=== PATIENT | female | born 1955 | race Hispanic/Latino ===

== ENCOUNTER → 2018-09-01 | Outpatient (CLI) | payer OTHER | END | disposition home or self-care (01) | LOC: RAH 07:58 | PROVIDERS: ATTEND Family Medicine | DX: Z12.31 Encounter for screening mammogram for malignant neoplasm of breast (principal) | CPT/HCPCS: 77067 ==

== ENCOUNTER → 2019-02-09 | Outpatient (CLI) | payer OTHER | END | disposition home or self-care (01) | LOC: RAH 08:38 | PROVIDERS: ATTEND Internal Medicine Gastroenterology | DX: K74.60 Unspecified cirrhosis of liver (principal); K80.20 Calculus of gallbladder without cholecystitis without obstruction | CPT/HCPCS: 76700; 93975 ==

== ENCOUNTER 2019-04-13 06:04 | Day surgery (SDC) | payer OTHER ==
[2019-04-13] VITALS (7 sets, daily range): BP systolic 90–157; BP diastolic 36–58
[~2019-04-13] VITALS: Ht 147.3 cm; Wt 54.0 kg
[~2019-04-13 06:04] MED LIST: FERR-63 PO; GLIP5TAB11 PO; LOSA25TA41 PO; METF-446 PO; MULT400C3 PO; OMEG-148 PO; OMEP40CA37 PO; PROP10TA10 PO; SIMV10TA6 PO; SITA100T12 PO; SODIUM CHLORIDE 0.9% 1000ML 1,000 ML IV ONE
[2019-04-13] MEDS ORDERED: PROPOFOL 10 MG/ML 20ML VIAL IV ONE (08:22)
[2019-04-13] MEDS ORDERED: LIDOCAINE HCL 2% 20ML ONE (08:23)
[2019-04-15 05:10] LABS: HEPATITIS A ANTIBODY IGM Negative (Negative)
== END 2019-04-13 09:10 | disposition home or self-care (01) ==
LOC: ENDO 06:04 → DAH 06:04 → ENDO 09:10
PROVIDERS: ATTEND Internal Medicine Gastroenterology
DX: Z12.11 Encounter for screening for malignant neoplasm of colon (principal); D12.0 Benign neoplasm of cecum; K63.5 Polyp of colon; K57.30 Diverticulosis of large intestine without perforation or abscess without bleeding; K64.0 First degree hemorrhoids; E78.5 Hyperlipidemia, unspecified; I10 Essential (primary) hypertension; E11.9 Type 2 diabetes mellitus without complications; Z79.4 Long term (current) use of insulin; Z79.84 Long term (current) use of oral hypoglycemic drugs; Z90.710 Acquired absence of both cervix and uterus; Z79.899 Other long term (current) drug therapy; Z98.890 Other specified postprocedural states
CPT/HCPCS: 36415; 45385; 82948 ×2; 86255; 86709; 87522; 88305; 93005; A4606; J2704; J3490; J7030

== ENCOUNTER → 2019-10-14 | Outpatient (CLI) | payer OTHER ==
[~2019-10-14] MED LIST changes: +OMEP40CA13 PO; -OMEP40CA37 PO; -SIMV10TA6 PO; +SIMV10TA97 PO; -SODIUM CHLORIDE 0.9% 1000ML 1,000 ML IV ONE
== END | disposition home or self-care (01) ==
LOC: RAH 08:17
PROVIDERS: ATTEND Internal Medicine Gastroenterology
DX: K80.20 Calculus of gallbladder without cholecystitis without obstruction (principal); K74.60 Unspecified cirrhosis of liver
CPT/HCPCS: 76700; 93975

== ENCOUNTER 2020-02-10 12:17 | Observation (INO) | payer OTHER ==
[2020-02-10 14:30] LABS: BASOPHILS % (AUTO) 0.5 % (0.0-5.0); EOSINOPHILS % (AUTO) 4.4 % (0.0-8.0); HEMATOCRIT 22.3 % (36-48); LYMPHOCYTES % (AUTO) 17.7 % (21.0-51.0); MEAN CORPUSCULAR HGB CONC 32.3 g/dL (32.0-36.0); MEAN CORPUSCULAR VOLUME 102.3 fL (79-99); MONOCYTES % (AUTO) 7.4 % (3.0-13.0); NEUTROPHILS % (AUTO) 69.4 % (40.0-77.0); PLATELET COUNT (AUTO) 140 K/uL (130-400); RED BLOOD CELL COUNT(AUTO) 2.18 MIL/uL (4.00-5.50); WHITE BLOOD COUNT (AUTO) 13.3 K/uL (4.8-10.8)
[2020-02-10 14:41] LABS: CREATININE 1.2 mg/dL (0.5-1.5); POTASSIUM 4.4 mmol/L (3.5-5.1)
[2020-02-10 14:42] LABS: INR 0.95 (0.85-1.15); PARTIAL THROMBOPLASTIN TIME 25.7 SEC (26.3-35.5); PROTHROMBIN TIME 10.3 SEC (9.6-11.6)
[2020-02-10 14:46] LABS: ALBUMIN 2.8 g/dL (3.5-5.0); BILIRUBIN,TOTAL 0.2 mg/dL (0.2-1.0); TOTAL PROTEIN, SERUM 6.1 g/dL (6.0-8.3)
[2020-02-10] MEDS ORDERED: OCTREOTIDE ACETATE 100 MCG/ML AMP ONE ×2 (15:11→15:16)
[2020-02-10] MEDS ORDERED: OCTREOTIDE ACETATE 500 MCG in SODIUM CHLORIDE 0.9% 97.5 ML IV SCH (15:45)
[2020-02-10] MEDS ORDERED: ONDANSETRON HCL 4 MG/2 ML VIAL IVP PRN (15:45)
[2020-02-10] MEDS ORDERED: HYDRALAZINE HCL 20 MG/ML VIAL IV PRN (15:45)
[2020-02-10] MEDS: LACTATED RINGERS 1000ML 1,000 ML IV SCH (15:45)
[2020-02-10] MEDS ORDERED: CEFTRIAXONE SODIUM 1 GM ONE (16:02)
--- NOTE | 2020-02-10 18:10 | NUR ---
ADMISSION PER ER. PT AAO X 3 REVIEW . NOTED NO GI BLEEDING ASSIT UP TO THE BATHROOM AND HAS ONE TARRY BM. ASSIT BACK TO BED . REVIEW PT DATA ADMISSION .
[2020-02-10 20:00] VITALS: BP_SYST 118; BP_SYST 134; BP_DIAS 53; BP_DIAS 72
[2020-02-10] MEDS: PANTOPRAZOLE SODIUM 80 MG in NS 100ML IVP SCH (22:02)
[2020-02-10 23:49] VITALS: BP 104/44
[2020-02-11] VITALS (7 sets, daily range): BP systolic 116–138; BP diastolic 44–80
[2020-02-11] MEDS ORDERED: SODIUM CHLORIDE 0.9% 500ML 500 ML IV ONE (00:10)
[2020-02-11 00:46] LABS: HEMATOCRIT 22.7 % (36-48); MEAN CORPUSCULAR HGB CONC 31.7 g/dL (32.0-36.0); MEAN CORPUSCULAR VOLUME 104.1 fL (79-99); RED BLOOD CELL COUNT(AUTO) 2.18 MIL/uL (4.00-5.50); RED CELL DISTRIBUTION WIDTH 15.4 % (11.0-15.5); WHITE BLOOD COUNT (AUTO) 15.9 K/uL (4.8-10.8)
[2020-02-11] MEDS: LACTATED RINGERS 1000ML 1,000 ML IV SCH (06:42)
[2020-02-11] MEDS: PANTOPRAZOLE SODIUM 80 MG in NS 100ML IVP SCH (07:03)
--- NOTE | 2020-02-11 08:00 | NUR ---
PT AAO X 3 REVIEW HER CARE, AND MEDICATIONS AND SIDE EFFECT IN [place]. DENIES ANY GASTRIC PAIN. NPO STATUS HOB UP AND CALL LIGHT I N REACH..
[2020-02-11 08:24] LABS: BASOPHILS % (AUTO) 0.5 % (0.0-5.0); EOSINOPHILS % (AUTO) 1.7 % (0.0-8.0); HEMATOCRIT 32.2 % (36-48); MEAN CORPUSCULAR HEMOGLOBIN 31.8 pg (27.0-33.0); MEAN CORPUSCULAR HGB CONC 33.2 g/dL (32.0-36.0); MEAN CORPUSCULAR VOLUME 95.8 fL (79-99); MONOCYTES % (AUTO) 10.6 % (3.0-13.0); NEUTROPHILS % (AUTO) 71.7 % (40.0-77.0); PLATELET COUNT (AUTO) 112 K/uL (130-400); RED BLOOD CELL COUNT(AUTO) 3.36 MIL/uL (4.00-5.50); RED CELL DISTRIBUTION WIDTH 16.8 % (11.0-15.5)
--- NOTE | 2020-02-11 10:38 | NUR ---
CHART CHECK COMPLETED. Pt IS A 64 Y.O. FEMALE ADMITTED SECONDARY TO GI BLEED. PAST MEDICAL HISTORY IS NOT REPORTED AT THIS TIME. Pt CURRENTLY NPO SECONDARY TO ADMITTING DIAGNOSIS. SKILLED SPEECH THERAPY IS NOT RECOMMENDED AT THIS TIME. Addendum: 02/11/20 at 1044 by BRENT IZQUIERDO, [facility] Amended: Links added.
--- NOTE | 2020-02-11 12:00 | NUR ---
STARTED ON A CL LIQ DIET. FIRST . SETUP . REVIEW IF SHE HAS ANY BLEEDING TO CALL NURSE, CALL LIGHT IN REACH..
--- NOTE | 2020-02-11 12:33 | NUR ---
DCP CM spoke to pt discussed dc plans. Pt is independent prior to admission, lives at home with son, daughter in law, and 4 grandchildren. Denies any equipments/services. Feels safe to go back home, still drives and works as a provider, son and family able to assist with transportation and needs as necessary. DC plan to home once stable. CM to cont to follow up. Verified home addr: [id number] [place] [address] Addendum: 02/11/20 at 1235 by RAH WEINSTEIN LVN CM Amended: Links added.
[2020-02-11 14:08] LABS: BASOPHILS % (AUTO) 0.7 % (0.0-5.0); EOSINOPHILS % (AUTO) 4.3 % (0.0-8.0); HEMATOCRIT 33.4 % (36-48); LYMPHOCYTES % (AUTO) 17.5 % (21.0-51.0); MEAN CORPUSCULAR HEMOGLOBIN 31.5 pg (27.0-33.0); MEAN CORPUSCULAR HGB CONC 32.6 g/dL (32.0-36.0); MEAN CORPUSCULAR VOLUME 96.5 fL (79-99); MONOCYTES % (AUTO) 12.4 % (3.0-13.0); NEUTROPHILS % (AUTO) 64.5 % (40.0-77.0); PLATELET COUNT (AUTO) 105 K/uL (130-400); RED BLOOD CELL COUNT(AUTO) 3.46 MIL/uL (4.00-5.50); RED CELL DISTRIBUTION WIDTH 17.8 % (11.0-15.5); WHITE BLOOD COUNT (AUTO) 9.4 K/uL (4.8-10.8)
--- NOTE | 2020-02-11 17:30 | NUR ---
PT SITTING UP IN BED , REVIEW CHANGE DIET TO A SOFT BLAND , GI DIET. PT STATED THAT SHE TOOK HER CL LIQ WITH ANY PAIN, CALL LIGHT IN REACH.
--- NOTE | 2020-02-11 19:20 | NUR ---
HGB OF A 10.3 DOWN FROM A 10.9 AT 1402, CONT . MONITOR .
[2020-02-11 19:54] LABS: BASOPHILS % (AUTO) 0.7 % (0.0-5.0); EOSINOPHILS % (AUTO) 6.4 % (0.0-8.0); HEMATOCRIT 31.7 % (36-48); LYMPHOCYTES % (AUTO) 18.3 % (21.0-51.0); MEAN CORPUSCULAR HEMOGLOBIN 31.4 pg (27.0-33.0); MEAN CORPUSCULAR HGB CONC 32.5 g/dL (32.0-36.0); MEAN CORPUSCULAR VOLUME 96.6 fL (79-99); MONOCYTES % (AUTO) 12.3 % (3.0-13.0); NEUTROPHILS % (AUTO) 61.9 % (40.0-77.0); PLATELET COUNT (AUTO) 111 K/uL (130-400); RED BLOOD CELL COUNT(AUTO) 3.28 MIL/uL (4.00-5.50); WHITE BLOOD COUNT (AUTO) 8.9 K/uL (4.8-10.8)
[2020-02-11] MEDS: PANTOPRAZOLE SODIUM 40 MG TABLET.DR PO SCH (21:28)
[2020-02-12 04:11] VITALS: BP 130/58
[2020-02-12 08:00] VITALS: BP 138/55
[2020-02-12] MEDS ORDERED: OMEP40CA13 PO (09:47)
[2020-02-12] MEDS: PANTOPRAZOLE SODIUM 40 MG TABLET.DR PO SCH (09:54)
[2020-02-12 11:00] VITALS: BP 94/52
== END 2020-02-12 13:00 | disposition home or self-care (01) ==
LOC: EDH 12:17 → EDHIP 15:00 → 3DH 17:56 → 3BH 20:40
PROVIDERS: ADMIT Internal Medicine; ATTEND Internal Medicine
DX: I85.10 Secondary esophageal varices without bleeding (principal); D62 Acute posthemorrhagic anemia; K29.70 Gastritis, unspecified, without bleeding; K92.0 Hematemesis; E11.9 Type 2 diabetes mellitus without complications; E78.5 Hyperlipidemia, unspecified; I10 Essential (primary) hypertension; K57.90 Diverticulosis of intestine, part unspecified, without perforation or abscess without bleeding; K80.20 Calculus of gallbladder without cholecystitis without obstruction; K64.9 Unspecified hemorrhoids; K74.60 Unspecified cirrhosis of liver; Z90.710 Acquired absence of both cervix and uterus; Z79.84 Long term (current) use of oral hypoglycemic drugs; Z79.899 Other long term (current) drug therapy
CPT/HCPCS: 36415 ×2; 36430; 80053; 82550; 82948 ×2; 84484; 85025 ×4; 85027; 85610; 85730; 86850; 86900; 86901; 86922; 93005; 96361 ×2; 96365; 96366 ×2; 99291; C9113 ×2; G0378 ×27; J0696; J2354 ×3; J7040; J7120; P9016 ×2

== ENCOUNTER → 2020-02-26 | Outpatient (CLI) | payer OTHER | END | disposition home or self-care (01) | LOC: RAH 07:47 | PROVIDERS: ATTEND Internal Medicine Gastroenterology | DX: Z01.810 Encounter for preprocedural cardiovascular examination (principal); I05.9 Rheumatic mitral valve disease, unspecified; I85.00 Esophageal varices without bleeding; K80.20 Calculus of gallbladder without cholecystitis without obstruction | CPT/HCPCS: 76700; 93306; 93356; 93975 ==

== ENCOUNTER 2020-09-09 18:36 | Inpatient (IN) | payer OTHER ==
[~2020-09-09] VITALS: Ht 142.2 cm; Wt 55.8 kg
[2020-09-09] MEDS: SODIUM CHLORIDE 0.9% 1000ML 1,000 ML IV SCH (11:01)
[2020-09-09 19:34] LABS: BASOPHILS % (AUTO) 0.9 % (0.0-5.0); EOSINOPHILS % (AUTO) 9.2 % (0.0-8.0); HEMATOCRIT 33.5 % (36-48); LYMPHOCYTES % (AUTO) 15.9 % (21.0-51.0); MEAN CORPUSCULAR HEMOGLOBIN 34.3 pg (27.0-33.0); MEAN CORPUSCULAR HGB CONC 32.8 g/dL (32.0-36.0); MEAN CORPUSCULAR VOLUME 104.4 fL (79-99); MONOCYTES % (AUTO) 6.6 % (3.0-13.0); NEUTROPHILS % (AUTO) 66.4 % (40.0-77.0); PLATELET COUNT (AUTO) 207 K/uL (130-400); RED BLOOD CELL COUNT(AUTO) 3.21 MIL/uL (4.00-5.50); RED CELL DISTRIBUTION WIDTH 13.2 % (11.0-15.5); WHITE BLOOD COUNT (AUTO) 13.4 K/uL (4.8-10.8)
[2020-09-09 19:35] LABS: APPEARANCE,URINE Clear (CLEAR); BILIRUBIN,URINE Negative (NEGATIVE); COLOR,URINE Yellow (YELLOW); GLUCOSE, URINE (UA) Negative (NEGATIVE); KETONES,URINE Trace mg/dL (NEGATIVE); LEUKOCYTE ESTERASE ,URINE Small (NEGATIVE); NITRATE,URINE Negative (NEGATIVE); OCCULT BLOOD,URINE Small (NEGATIVE); PROTEIN,URINE POS 1+ mg/dL (NEGATIVE)
[2020-09-09 19:49] LABS: CREATININE 1.4 mg/dL (0.5-1.5); POTASSIUM 5.7 mmol/L (3.5-5.1)
[2020-09-09 19:50] LABS: INR 1.02 (0.85-1.15); PROTHROMBIN TIME 11.1 SEC (9.6-11.6)
[2020-09-09 19:51] LABS: PARTIAL THROMBOPLASTIN TIME 26.1 SEC (26.3-35.5)
[2020-09-09 19:54] LABS: ALBUMIN 3.3 g/dL (3.5-5.0); BACTERIA,URINE Rare /HPF (None Seen); BILIRUBIN,TOTAL 0.5 mg/dL (0.2-1.0); RBC,URINE 26-50 /HPF (0-1); SQUAMOUS EPITHELIAL CELL,UR Few /HPF (0-2); TOTAL PROTEIN, SERUM 7.4 g/dL (6.0-8.3)
[2020-09-09] MEDS ORDERED: PANTOPRAZOLE 40 MG/VIAL ONE (20:08)
[2020-09-09] MEDS ORDERED: SODIUM CHLORIDE 0.9% 100 ML IV ONE (20:09)
[2020-09-09] MEDS ORDERED: SODIUM POLYSTYRENE SULFONATE 15 GM/60 ML ML ONE (20:28)
[2020-09-09] MEDS ORDERED: PANTOPRAZOLE SODIUM 80 MG in NS 100ML IVP SCH (20:30)
[2020-09-09] MEDS ORDERED: ZOLPIDEM TARTRATE 5 MG TAB PO PRN (21:45)
[2020-09-09] MEDS ORDERED: ACETAMINOPHEN 325 MG TAB PO PRN (21:45)
[2020-09-09] MEDS ORDERED: ONDANSETRON HCL 4 MG/2 ML VIAL IV PRN (21:45)
[2020-09-09] MEDS ORDERED: DiphenhydrAMINE HCL 50 MG/ML VIAL IV PRN (21:45)
[2020-09-09] MEDS ORDERED: HYDROMORPHONE HCL 0.5 MG/0.5 ML ML IVP PRN (21:45)
[2020-09-09] MEDS ORDERED: SODIUM CHLORIDE 0.9% 1000ML 1,000 ML IV ONE (22:09)
[2020-09-10] MEDS: PROPRANOLOL HCL 10 MG TAB PO SCH ×4 (02:00→20:56)
[2020-09-10] MEDS ORDERED: SODIUM CHLORIDE 0.9% 100 ML IV ONE ×2 (04:50→08:27)
[2020-09-10] MEDS ORDERED: PANTOPRAZOLE 40 MG/VIAL ONE ×2 (04:50→08:28)
[2020-09-10] MEDS ORDERED: FERROUS SULFATE 325 MG TABLET.DR ONE (08:21)
[2020-09-10] MEDS ORDERED: LOSARTAN 50 MG TABLET ONE (08:21)
[2020-09-10] MEDS ORDERED: PANTOPRAZOLE SODIUM 80 MG in SODIUM CHLORIDE 0.9% 100 ML IV SCH (09:00)
[2020-09-10] MEDS: FERROUS SULFATE 325 MG TABLET.DR PO SCH ×2 (09:00→20:56)
[2020-09-10] MEDS: LOSARTAN 50 MG TABLET PO SCH (09:00)
[2020-09-10 09:50] VITALS: BP 146/50
[2020-09-10] MEDS: SODIUM CHLORIDE 0.9% 1000ML 1,000 ML IV SCH (11:05)
[2020-09-10] MEDS ORDERED: OCTREOTIDE ACETATE 1,250 MCG in SODIUM CHLORIDE 0.9% 250 ML IV SCH (11:45)
[2020-09-10 11:47] VITALS: BP 113/49
[2020-09-10] MEDS ORDERED: SIMV-43 PO (12:12)
[2020-09-10 16:27] VITALS: BP 121/50
[2020-09-10 19:49] VITALS: BP 133/48
[2020-09-10] MEDS: PANTOPRAZOLE 40 MG/VIAL IVP SCH (20:56)
[2020-09-10] MEDS: SIMVASTATIN 20 MG TABLET PO SCH (20:56)
[2020-09-10 23:26] VITALS: BP 109/47
[2020-09-11] VITALS (18 sets, daily range): BP systolic 97–153; BP diastolic 37–79
[2020-09-11] MEDS: SODIUM CHLORIDE 0.9% 1000ML 1,000 ML IV SCH ×3 (00:57→21:26)
[2020-09-11] MEDS: PROPRANOLOL HCL 10 MG TAB PO SCH ×3 (05:55→21:22)
[2020-09-11 06:16] LABS: HEMATOCRIT 28.1 % (36-48); MEAN CORPUSCULAR HEMOGLOBIN 33.6 pg (27.0-33.0); MEAN CORPUSCULAR VOLUME 104.9 fL (79-99); RED BLOOD CELL COUNT(AUTO) 2.68 MIL/uL (4.00-5.50); RED CELL DISTRIBUTION WIDTH 13.7 % (11.0-15.5); WHITE BLOOD COUNT (AUTO) 9.6 K/uL (4.8-10.8)
[2020-09-11 06:41] LABS: CREATININE 1.2 mg/dL (0.5-1.5); POTASSIUM 4.6 mmol/L (3.5-5.1)
[2020-09-11] MEDS: LOSARTAN 50 MG TABLET PO SCH (09:00)
[2020-09-11] MEDS ORDERED: PROPOFOL 10 MG/ML 20ML VIAL IV ONE (10:15)
[2020-09-11] MEDS ORDERED: LIDOCAINE HCL 1% 20 ML VIAL ONE (10:15)
[2020-09-11] MEDS: FERROUS SULFATE 325 MG TABLET.DR PO SCH ×2 (11:24→21:22)
[2020-09-11] MEDS: PANTOPRAZOLE 40 MG/VIAL IVP SCH ×2 (13:56→21:00)
[2020-09-11] MEDS ORDERED: PEG 3350/NA SULF,BICARB,CL/KCL 4000 ML SOLN PO SCH (20:15)
[2020-09-11] MEDS: SIMVASTATIN 20 MG TABLET PO SCH (21:22)
[2020-09-12] VITALS (21 sets, daily range): BP systolic 108–148; BP diastolic 40–107
[2020-09-12] MEDS: PROPRANOLOL HCL 10 MG TAB PO SCH ×2 (05:11→16:40)
[2020-09-12 06:20] LABS: HEMATOCRIT 27.4 % (36-48); MEAN CORPUSCULAR HEMOGLOBIN 33.5 pg (27.0-33.0); MEAN CORPUSCULAR HGB CONC 31.8 g/dL (32.0-36.0); MEAN CORPUSCULAR VOLUME 105.4 fL (79-99); RED BLOOD CELL COUNT(AUTO) 2.6 MIL/uL (4.00-5.50); RED CELL DISTRIBUTION WIDTH 13.6 % (11.0-15.5); WHITE BLOOD COUNT (AUTO) 8.1 K/uL (4.8-10.8)
[2020-09-12 06:30] LABS: CREATININE 1.1 mg/dL (0.5-1.5); MAGNESIUM 1.6 mg/dL (1.80-2.40); POTASSIUM 4.1 mmol/L (3.5-5.1)
[2020-09-12 06:32] LABS: INR 1.05 (0.85-1.15); PROTHROMBIN TIME 11.4 SEC (9.6-11.6)
[2020-09-12 06:33] LABS: PARTIAL THROMBOPLASTIN TIME 23.8 SEC (26.3-35.5)
[2020-09-12] MEDS: PANTOPRAZOLE 40 MG/VIAL IVP SCH (09:00)
[2020-09-12] MEDS: FERROUS SULFATE 325 MG TABLET.DR PO SCH (09:00)
[2020-09-12] MEDS: LOSARTAN 50 MG TABLET PO SCH (09:00)
[2020-09-12] MEDS ORDERED: LIDOCAINE HCL-MPF 2% 5ML VIAL ONE (10:10)
[2020-09-12] MEDS ORDERED: PROPOFOL 10 MG/ML 20ML VIAL IV ONE (10:10)
[2020-09-12] MEDS ORDERED: PANT40TA PO (13:29)
[2020-09-12] MEDS ORDERED: DOCU-116 PO (13:29)
[2020-09-12] MEDS ORDERED: MAGNESIUM 2GM PREMIX 50ML 50 ML IV SCH (15:30)
[2020-09-12] MEDS: SODIUM CHLORIDE 0.9% 1000ML 1,000 ML IV SCH (16:25)
[2020-09-12] MEDS ORDERED: SODIUM CHLORIDE 0.9% 250 ML IV ONE (16:30)
== END 2020-09-12 21:00 | disposition home or self-care (01) | DRG 377 ==
LOC: EDH 18:36 → EDHIP 21:29 → OBSVTOIN 21:29 → 3AH 09-10 09:57
PROVIDERS: ADMIT Internal Medicine; ATTEND Internal Medicine
PROC: 0DJD8ZZ Inspection of Lower Intestinal Tract, Via Natural or Artificial Opening Endoscopic (ICD-10-PCS; principal; 2020-09-12)
PROC: 0DJ08ZZ Inspection of Upper Intestinal Tract, Via Natural or Artificial Opening Endoscopic (ICD-10-PCS; 2020-09-12)
DX: K57.31 Diverticulosis of large intestine without perforation or abscess with bleeding (principal); K21.01 Gastro-esophageal reflux disease with esophagitis, with bleeding; K76.6 Portal hypertension; K22.6 Gastro-esophageal laceration-hemorrhage syndrome; K29.71 Gastritis, unspecified, with bleeding; Z20.822 Contact with and (suspected) exposure to COVID-19; K74.60 Unspecified cirrhosis of liver; I10 Essential (primary) hypertension; E11.9 Type 2 diabetes mellitus without complications; E78.00 Pure hypercholesterolemia, unspecified; Z79.84 Long term (current) use of oral hypoglycemic drugs; Z80.0 Family history of malignant neoplasm of digestive organs; Z82.0 Family history of epilepsy and other diseases of the nervous system; Z87.11 Personal history of peptic ulcer disease; K64.1 Second degree hemorrhoids
CPT/HCPCS: 36415; 43235; 45378; 71045; 80048; 80053; 81001; 82270; 83690; 83735; 84132; 84484; 85025; 85027; 85610; 85730; 86900; 86901; 87088; 87426; 99291; A4606; C9113; G0378; J2354; J2704; J3475; J3490; J7030; J7050; U0003

== ENCOUNTER → 2020-09-23 | Outpatient (CLI) | payer OTHER ==
[~2020-09-23] MED LIST changes: +DOCU-116 PO; -OMEP40CA13 PO; +PANT40TA PO; +SIMV-43 PO; -SIMV10TA97 PO; -SITA100T12 PO
== END | disposition home or self-care (01) ==
LOC: RAH 08:35
PROVIDERS: ATTEND Internal Medicine Gastroenterology
DX: K80.20 Calculus of gallbladder without cholecystitis without obstruction (principal); K74.60 Unspecified cirrhosis of liver; R18.8 Other ascites
CPT/HCPCS: 76700; 93975

== ENCOUNTER → 2020-10-31 | Outpatient (CLI) | payer OTHER | END | disposition home or self-care (01) | LOC: RAH 14:54 | PROVIDERS: ATTEND Family Medicine | DX: Z12.31 Encounter for screening mammogram for malignant neoplasm of breast (principal) | CPT/HCPCS: 77067 ==

== ENCOUNTER → 2021-09-06 | Outpatient (CLI) | payer OTHER, MEDICARE | END | disposition home or self-care (01) | LOC: RAH 08:31 | PROVIDERS: ATTEND Internal Medicine Gastroenterology | DX: K74.60 Unspecified cirrhosis of liver (principal); K80.20 Calculus of gallbladder without cholecystitis without obstruction; R18.8 Other ascites | CPT/HCPCS: 76700; 93975 ==

== ENCOUNTER → 2021-11-01 | Outpatient (CLI) | payer OTHER, MEDICARE | END | disposition home or self-care (01) | LOC: RAH 13:58 | PROVIDERS: ATTEND Family Medicine | DX: Z12.31 Encounter for screening mammogram for malignant neoplasm of breast (principal) | CPT/HCPCS: 77067 ==

== ENCOUNTER → 2022-01-16 | Outpatient (CLI) | payer OTHER, MEDICARE ==
[~2022-01-16] MED LIST changes: +ALBUMIN (HUMAN) 25% 200 ML IV SCH
[2022-01-16 09:37] LABS: INR 1.05 (0.85-1.15); PROTHROMBIN TIME 11.4 SEC (9.6-11.6)
[2022-01-16 09:38] LABS: PARTIAL THROMBOPLASTIN TIME 29.6 SEC (26.3-35.5)
[2022-01-16 19:22] LABS: APPEARANCE BODY FLUID CLEAR (CLEAR); COLOR,BODY FLUID YELLOW (LT YELLOW); SPECIMENTYPE,BODY FLUID ASCITES; TOTAL VOLUME,BODY FLUID 3300 mL
[2022-01-16 19:23] LABS: BODY FLUID RBC 260 /cu. mm.; BODY FLUID WBC 39 /cu. mm.
[2022-01-16 19:29] LABS: BF EOSINOPHIL 4 %; BF LYMPHOCYTE 34 %; BF MONOCYTE 1 %
== END | disposition home or self-care (01) ==
LOC: RAH 08:58
PROVIDERS: ATTEND Student in an Organized Health Care Education/Training Program
DX: R18.8 Other ascites (principal); K74.60 Unspecified cirrhosis of liver; Z79.01 Long term (current) use of anticoagulants
CPT/HCPCS: 36415; 49083; 85610; 85730; 87071; 87205; 89051; C1729; P9046

== ENCOUNTER → 2022-02-20 | Outpatient (CLI) | payer OTHER, MEDICARE ==
[~2022-02-20] MED LIST changes: +LIDOCAINE HCL 1% 10 ML VIAL ONE; +SODIUM BICARB 50MEQ 50ML VIAL 50 ML ONE
[2022-02-20 09:04] LABS: HEMATOCRIT 38.9 % (36-48); MEAN CORPUSCULAR HEMOGLOBIN 32.7 pg (27.0-33.0); MEAN CORPUSCULAR HGB CONC 31.9 g/dL (32.0-36.0); MEAN CORPUSCULAR VOLUME 102.6 fL (79-99); PLATELET COUNT (AUTO) 242 K/uL (130-400); RED BLOOD CELL COUNT(AUTO) 3.79 MIL/uL (4.00-5.50); RED CELL DISTRIBUTION WIDTH 13.9 % (11.0-15.5); WHITE BLOOD COUNT (AUTO) 8.4 K/uL (4.8-10.8)
[2022-02-20 09:17] LABS: INR 1.07 (0.85-1.15); PROTHROMBIN TIME 11.6 SEC (9.6-11.6)
[2022-02-20 09:37] LABS: ALBUMIN 2.4 g/dL (3.5-5.0); CREATININE 1.2 mg/dL (0.5-1.5); POTASSIUM 4.7 mmol/L (3.5-5.1); TOTAL PROTEIN, SERUM 6.8 g/dL (6.0-8.3)
[2022-02-20 10:08] LABS: EOSINOPHILS % (MANUAL) 9 % (1-6); LYMPHOCYTES % (MANUAL) 16 % (22-44); MONOCYTES % (MANUAL) 5 % (2-9); SEGMENTED NEUTROPHILS % 70 % (40-70)
[2022-02-20 10:09] LABS: MAN.DIFF COMMENT-IMPRESSION MANUAL DIFFERENTIAL; PLATELET MORPHOLOGY COMMENT ADEQUATE
[2022-02-20 11:42] LABS: APPEARANCE BODY FLUID CLEAR (CLEAR); COLOR,BODY FLUID YELLOW (LT YELLOW); SPECIMENTYPE,BODY FLUID ASCITES; TOTAL VOLUME,BODY FLUID 4800 mL
[2022-02-20 11:43] LABS: BODY FLUID RBC 150 /cu. mm.; BODY FLUID WBC 110 /cu. mm.
[2022-02-20 12:12] LABS: BF EOSINOPHIL 2 %; BF LYMPHOCYTE 56 %; BF MESOTHELIAL 42 %
== END | disposition home or self-care (01) ==
LOC: RAH 08:08
PROVIDERS: ATTEND Internal Medicine Gastroenterology
DX: R18.8 Other ascites (principal); K74.60 Unspecified cirrhosis of liver; R59.1 Generalized enlarged lymph nodes; I10 Essential (primary) hypertension; E66.3 Overweight; E78.5 Hyperlipidemia, unspecified; K21.9 Gastro-esophageal reflux disease without esophagitis; E11.9 Type 2 diabetes mellitus without complications; Z86.010 Personal history of colon polyps; Z98.51 Tubal ligation status; Z98.890 Other specified postprocedural states; Z83.3 Family history of diabetes mellitus; Z80.9 Family history of malignant neoplasm, unspecified; Z79.01 Long term (current) use of anticoagulants; Z79.899 Other long term (current) drug therapy
CPT/HCPCS: 49083; 80053; 85025; 89051; 85610; 87071; 87205; 36415; 88305; 88112; 76882; P9046; J3490 ×2; C1729; 96365

== ENCOUNTER → 2022-03-07 | Outpatient (CLI) | payer OTHER, MEDICARE ==
[~2022-03-07] MED LIST changes: -LIDOCAINE HCL 1% 10 ML VIAL ONE; -SODIUM BICARB 50MEQ 50ML VIAL 50 ML ONE
[2022-03-07 09:14] LABS: BASOPHILS % (AUTO) 0.6 % (0.0-5.0); EOSINOPHILS % (AUTO) 8.6 % (0.0-8.0); HEMATOCRIT 34.1 % (36-48); LYMPHOCYTES % (AUTO) 9.1 % (21.0-51.0); MEAN CORPUSCULAR HEMOGLOBIN 32.9 pg (27.0-33.0); MEAN CORPUSCULAR HGB CONC 33.1 g/dL (32.0-36.0); MEAN CORPUSCULAR VOLUME 99.4 fL (79-99); MONOCYTES % (AUTO) 12.3 % (3.0-13.0); NEUTROPHILS % (AUTO) 68.8 % (40.0-77.0); PLATELET COUNT (AUTO) 222 K/uL (130-400); RED BLOOD CELL COUNT(AUTO) 3.43 MIL/uL (4.00-5.50); WHITE BLOOD COUNT (AUTO) 9.3 K/uL (4.8-10.8)
[2022-03-07 09:24] LABS: INR 1.08 (0.85-1.15); PROTHROMBIN TIME 11.7 SEC (9.6-11.6)
[2022-03-07 09:25] LABS: PARTIAL THROMBOPLASTIN TIME 29.3 SEC (26.3-35.5)
[2022-03-07 09:27] LABS: ALBUMIN 2.5 g/dL (3.5-5.0); CREATININE 1.2 mg/dL (0.5-1.5); POTASSIUM 4.2 mmol/L (3.5-5.1); TOTAL PROTEIN, SERUM 6.5 g/dL (6.0-8.3)
[2022-03-07 14:34] LABS: APPEARANCE BODY FLUID CLEAR (CLEAR); COLOR,BODY FLUID YELLOW (LT YELLOW); SPECIMENTYPE,BODY FLUID ASCITES; TOTAL VOLUME,BODY FLUID 6300 mL
[2022-03-07 14:35] LABS: BODY FLUID RBC 202 /cu. mm.; BODY FLUID WBC 50 /cu. mm.
[2022-03-07 15:43] LABS: BF EOSINOPHIL 1 %; BF LYMPHOCYTE 53 %; BF MONOCYTE 4 %; BF OTHER CELLS 4
== END | disposition home or self-care (01) ==
LOC: RAH 08:01
PROVIDERS: ATTEND Internal Medicine Gastroenterology
DX: R18.8 Other ascites (principal); K74.60 Unspecified cirrhosis of liver; R59.1 Generalized enlarged lymph nodes; I10 Essential (primary) hypertension; E66.3 Overweight; E78.5 Hyperlipidemia, unspecified; K21.9 Gastro-esophageal reflux disease without esophagitis; E11.9 Type 2 diabetes mellitus without complications; Z86.010 Personal history of colon polyps; Z98.51 Tubal ligation status; Z98.890 Other specified postprocedural states; Z83.0 Family history of human immunodeficiency virus [HIV] disease; Z83.3 Family history of diabetes mellitus; Z80.9 Family history of malignant neoplasm, unspecified; Z79.01 Long term (current) use of anticoagulants; Z79.899 Other long term (current) drug therapy
CPT/HCPCS: 49083; 93975; 76700; 80053; 85025; 89051; 85610; 85730; 87071; 87205; 82105; 36415; P9046; C1729

== ENCOUNTER → 2022-04-16 | Outpatient (CLI) | payer OTHER, MEDICARE ==
[~2022-04-16] MED LIST changes: +ALBUMIN (HUMAN) 25% 200 ML IV ONE; -ALBUMIN (HUMAN) 25% 200 ML IV SCH; +LIDOCAINE HCL MPF 1% 5ML VIAL ONE
[2022-04-16 11:41] LABS: HEMATOCRIT 35.2 % (36-48); MEAN CORPUSCULAR HEMOGLOBIN 33.3 pg (27.0-33.0); MEAN CORPUSCULAR HGB CONC 32.1 g/dL (32.0-36.0); MEAN CORPUSCULAR VOLUME 103.8 fL (79-99); PLATELET COUNT (AUTO) 211 K/uL (130-400); RED BLOOD CELL COUNT(AUTO) 3.39 MIL/uL (4.00-5.50); RED CELL DISTRIBUTION WIDTH 15.7 % (11.0-15.5); WHITE BLOOD COUNT (AUTO) 9.4 K/uL (4.8-10.8)
[2022-04-16 12:12] LABS: INR 1.1 (0.85-1.15); PROTHROMBIN TIME 11.9 SEC (9.6-11.6)
[2022-04-16 12:14] LABS: PARTIAL THROMBOPLASTIN TIME 28.3 SEC (26.3-35.5)
[2022-04-16 12:22] LABS: BASOPHILS % (MANUAL) 1 % (0-2); EOSINOPHILS % (MANUAL) 4 % (1-6); LYMPHOCYTES % (MANUAL) 12 % (22-44); MAN.DIFF COMMENT-IMPRESSION MANUAL DIFFERENTIAL; MONOCYTES % (MANUAL) 12 % (2-9); PLATELET MORPHOLOGY COMMENT ADEQUATE; SEGMENTED NEUTROPHILS % 71 % (40-70)
[2022-04-16 12:41] LABS: POTASSIUM 3.8 mmol/L (3.5-5.1)
[2022-04-16 18:02] LABS: APPEARANCE BODY FLUID SLIGHTLY CLOUDY (CLEAR); COLOR,BODY FLUID YELLOW (LT YELLOW); SPECIMENTYPE,BODY FLUID ASCITES; TOTAL VOLUME,BODY FLUID 7000 mL
[2022-04-16 18:03] LABS: BODY FLUID RBC 203 /cu. mm.; BODY FLUID WBC 22 /cu. mm.
[2022-04-16 18:14] LABS: BF EOSINOPHIL 2 %; BF LYMPHOCYTE 28 %; BF MONOCYTE 13 %
== END | disposition home or self-care (01) ==
LOC: RAH 08:50
PROVIDERS: ATTEND Internal Medicine Gastroenterology
DX: R18.8 Other ascites (principal); Z79.01 Long term (current) use of anticoagulants
CPT/HCPCS: 49083; 80053; 85025; 89051; 85610; 85730; 36415; P9046; J3490; C1729

== ENCOUNTER → 2022-05-14 | Outpatient (CLI) | payer OTHER, MEDICARE ==
[~2022-05-14] MED LIST changes: -ALBUMIN (HUMAN) 25% 200 ML IV ONE; +ALBUMIN (HUMAN) 25% 200 ML IV SCH; +FURO40TA5 PO; +LACT10SO9 PO; +SPIR100T5 PO
[2022-05-14 10:25] LABS: BASOPHILS % (AUTO) 0.9 % (0.0-5.0); EOSINOPHILS % (AUTO) 12.3 % (0.0-8.0); HEMATOCRIT 35.1 % (36-48); LYMPHOCYTES % (AUTO) 14.6 % (21.0-51.0); MEAN CORPUSCULAR HEMOGLOBIN 33.9 pg (27.0-33.0); MEAN CORPUSCULAR HGB CONC 32.5 g/dL (32.0-36.0); MEAN CORPUSCULAR VOLUME 104.5 fL (79-99); MONOCYTES % (AUTO) 11.4 % (3.0-13.0); NEUTROPHILS % (AUTO) 60.1 % (40.0-77.0); PLATELET COUNT (AUTO) 171 K/uL (130-400); RED BLOOD CELL COUNT(AUTO) 3.36 MIL/uL (4.00-5.50); RED CELL DISTRIBUTION WIDTH 14.6 % (11.0-15.5); WHITE BLOOD COUNT (AUTO) 5.8 K/uL (4.8-10.8)
[2022-05-14 10:52] LABS: INR 1.2 (0.85-1.15); PROTHROMBIN TIME 12.9 SEC (9.6-11.6)
[2022-05-14 13:33] LABS: ALBUMIN 3.2 g/dL (3.5-5.0); POTASSIUM 3.8 mmol/L (3.5-5.1); TOTAL PROTEIN, SERUM 7.2 g/dL (6.0-8.3)
[2022-05-14 18:05] LABS: ALBUMIN,BODY FLUID < 0.6 g/dL
[2022-05-14 18:18] LABS: APPEARANCE BODY FLUID CLEAR (CLEAR); SPECIMENTYPE,BODY FLUID ASCITES
[2022-05-14 18:19] LABS: BODY FLUID RBC 2480 /cu. mm.; BODY FLUID WBC 10 /cu. mm.; COLOR,BODY FLUID ORANGE (LT YELLOW); TOTAL VOLUME,BODY FLUID 4100 mL
[2022-05-14 18:31] LABS: BF BASOPHIL 1 %; BF LYMPHOCYTE 76 %; BF MESOTHELIAL 3 %; BF MONOCYTE 1 %
== END | disposition home or self-care (01) ==
LOC: RAH 09:15
PROVIDERS: ATTEND Internal Medicine Gastroenterology
DX: R18.8 Other ascites (principal); K74.69 Other cirrhosis of liver; K21.9 Gastro-esophageal reflux disease without esophagitis; D64.9 Anemia, unspecified; K74.60 Unspecified cirrhosis of liver; I10 Essential (primary) hypertension; E78.5 Hyperlipidemia, unspecified; E11.9 Type 2 diabetes mellitus without complications; Z90.710 Acquired absence of both cervix and uterus; Z98.890 Other specified postprocedural states; Z79.01 Long term (current) use of anticoagulants; Z79.899 Other long term (current) drug therapy
CPT/HCPCS: 49083; 84157; 80053; 85025; 89051; 85610; 87071; 87076; 87077 ×2; 87186 ×2; 87205; 82042; 36415; 88305; 88342; 88112; 88341; P9046; J3490; C1729; 96365